=== PATIENT | male | born 1995 | race Caucasian/White ===

== ENCOUNTER 2017-08-08 20:13 | Emergency (ER) | payer SELFPAY ==
[~2017-08-08] VITALS: Ht 188 cm; Wt 110.0 kg
[2017-08-08 21:57] VITALS: BP 123/62
== END 2017-08-08 22:11 | disposition home or self-care (01) ==
LOC: EMS 20:16
DX: F15.10 Other stimulant abuse, uncomplicated (principal); F41.9 Anxiety disorder, unspecified; Z87.891 Personal history of nicotine dependence
CPT/HCPCS: 82962; 93005; 99285